=== PATIENT | female | born 1960 | race Caucasian/White ===

== ENCOUNTER 2017-09-13 15:39 | Emergency (ER) | payer MEDICAID ==
[~2017-09-13] VITALS: Ht 149.9 cm; Wt 44.6 kg
[~2017-09-13 15:39] MED LIST: ACET-1757 PO; ALBU6.7H; ALPR1TAB2 PO; BENA1TAB2; CHOL100011 PO; FLUO20CA8 PO; GUAI5SYR PO; HYDR-3237 PO; HYDR-3307 PO; LORA-446 PO; POTA8TAB PO; RANI150T4 PO
[2017-09-13] MEDS ORDERED: ALBUTEROL SULFATE 2.5 MG/3 ML ONE (16:57)
[2017-09-13] MEDS ORDERED: ALBUTEROL SULFATE 2.5MG/0.5ML NPPB SCH (17:00)
[2017-09-13 17:35] LABS: HEMATOCRIT 46.8 % (34.6-47.8); WHITE BLOOD COUNT 15.9 x10^3/uL (3.4-10)
[2017-09-13 17:37] LABS: BLOOD UREA NITROGEN 9 mg/dL (7-18)
[2017-09-13 18:04] LABS: IS PT STATUS REG ER OR PRE ER? YES
[2017-09-13 18:59] VITALS: BP 154/88
== END 2017-09-13 19:01 | disposition home or self-care (01) ==
LOC: ED 16:56
DX: J44.1 Chronic obstructive pulmonary disease with (acute) exacerbation (principal); I25.2 Old myocardial infarction; I10 Essential (primary) hypertension; F17.200 Nicotine dependence, unspecified, uncomplicated; J45.909 Unspecified asthma, uncomplicated; Z90.49 Acquired absence of other specified parts of digestive tract; Z90.710 Acquired absence of both cervix and uterus; Z90.89 Acquired absence of other organs
CPT/HCPCS: 36415; 71010; 80048; 82040; 84484; 85025; 93005; 94640; 99285; J7512

== ENCOUNTER 2018-05-31 12:01 | Emergency (ER) | payer MEDICAID ==
[~2018-05-31] VITALS: Ht 152.4 cm; Wt 45.3 kg
[2018-05-31 12:39] LABS: MICROSCOPIC NOT IND
[2018-05-31 12:44] LABS: CULTURE INDICATED? NO
[2018-05-31] MEDS ORDERED: PANTOPRAZOLE 40 MG IV IVP ONE (13:00)
[2018-05-31] MEDS ORDERED: MAALOX/HYOSCYAMINE/LIDOCAINE 45 ML BTL PO ONE (13:00)
[2018-05-31] MEDS ORDERED: PANTOPRAZOLE 40 MG IV ONE (13:27)
[2018-05-31 13:48] LABS: BASOPHILS # (AUTO) 0.06 x10^3/uL (0-0.1); BASOPHILS % (AUTO) 1 % (0-1); EOSINOPHILS # (AUTO) 0.08 x10^3/uL (0-0.4); EOSINOPHILS % (AUTO) 1 % (1-7); LYMPHOCYTES # (AUTO) 2.31 x10^3/uL (1-3.4); LYMPHOCYTES % (AUTO) 30 % (22-44); MD NO; MEAN CORPUSCULAR HEMOGLOBIN 31.7 pg (27.0-34.8); MEAN CORPUSCULAR HGB CONC 33.6 g/dL (32.4-35.8); MEAN CORPUSCULAR VOLUME 94.2 fL (80-100); MEAN PLATELET VOLUME 8.2 fL (7.4-10.4); MONOCYTES # (AUTO) 0.68 x10^3/uL (0.2-0.8); MONOCYTES % (AUTO) 9 % (2-9); NEUTROPHILS # (AUTO) 4.64 x10^3/uL (1.8-6.8); NEUTROPHILS % (AUTO) 60 % (42-75); PLATELET COUNT 291 x10^3/uL (130-400); RED BLOOD COUNT 4.69 x10^6/uL (3.82-5.3); RED CELL DISTRIBUTION WIDTH 12.6 % (9.6-15.2)
[2018-05-31] MEDS ORDERED: MAALOX/HYOSCYAMINE/LIDOCAINE 45 ML BTL ONE (13:55)
[2018-05-31 13:58] LABS: ALANINE AMINOTRANSFERASE 16 U/L (12-78); ALBUMIN 3.6 g/dL (3.4-5.0); ANION GAP 9 mmol/L (5-15); CALCIUM 8.5 mg/dL (8.5-10.1); CHLORIDE 109 mmol/L (98-107); CREATININE 0.69 mg/dL (0.55-1.02)
[2018-05-31 14:00] LABS: ALKALINE PHOSPHATASE 54 U/L (45-117); BILIRUBIN,TOTAL 0.5 mg/dL (0.2-1.0); TOTAL PROTEIN 6.6 g/dL (6.4-8.2)
[2018-05-31 14:56] VITALS: BP 149/79
[2018-05-31] MEDS ORDERED: OMNIPAQUE 350 MG/ML, 100ML BOTTLE ONE (15:13)
== END 2018-05-31 16:08 | disposition home or self-care (01) ==
LOC: ED 14:27
DX: K26.3 Acute duodenal ulcer without hemorrhage or perforation (principal); R10.0 Acute abdomen; I25.2 Old myocardial infarction; J44.9 Chronic obstructive pulmonary disease, unspecified; I10 Essential (primary) hypertension; F17.200 Nicotine dependence, unspecified, uncomplicated
CPT/HCPCS: 36415; 74177; 80053; 81003; 83690; 85025; 96374; 99285; C9113; Q9967

== ENCOUNTER → 2020-06-18 | Outpatient (CLI) | payer MEDICAID ==
[~2020-06-18] MED LIST changes: -ACET-1757 PO; +ACET-2065 PO; +ALBU1.25 NEB; +ALBU18HF INH; -ALBU6.7H; +ALBU6.7H8; +CEFD300C37 PO; +DOXY100T PO; +FLUO20CA23 PO; -FLUO20CA8 PO; +FLUT1DIS3 INH; +GUAI-103 PO; +HYDR-3246 PO; -HYDR-3307 PO; +IPRA3AMP30 NPPB; +LACT1TAB13 PO; +NICO-487 TD; +PRED20TA PO; +TIOT18CA INH
== END | disposition home or self-care (01) ==
LOC: STAR 12:54
PROVIDERS: ATTEND Internal Medicine Gastroenterology
DX: Z01.818 Encounter for other preprocedural examination (principal); Z11.59 Encounter for screening for other viral diseases; D49.0 Neoplasm of unspecified behavior of digestive system; R94.31 Abnormal electrocardiogram [ECG] [EKG]
CPT/HCPCS: 36415; 87635; 93005

== ENCOUNTER 2020-06-22 09:15 | Day surgery (SDC) | payer MEDICAID ==
[~2020-06-22] VITALS: Ht 149.9 cm; Wt 56.0 kg
[~2020-06-22 09:15] MED LIST changes: +ACETAMINOPHEN 325 MG TABLET PO PRN; +EPHEDRINE 50 MG/ML, 1ML IVPush PRN; +FENTANYL PF 100 MCG/2ML IV PRN; +HYDROmorphone 1 MG/ML, 1ML INJ IVPush PRN; +LABETALOL 5MG/ML, 20ML IV PRN; +MEPERIDINE/PF 25MG/0.5ML IVPush PRN; +ONDANSETRON 2MG/ML, 2ML IVPush PRN; +OXYcodone 5 MG/5 ML ORAL.SOL UDC PO PRN; +PROMETHAZINE 25 MG/ML, 1ML IVPush PRN; +hydrALAzine 20 MG/ML, 1ML IV PRN
[2020-06-22] MEDS ORDERED: LACTATED RINGERS 1,000 ML IV SCH (09:45)
[2020-06-22 09:47] VITALS: BP 128/86
[2020-06-22] MEDS ORDERED: CHLORHEXIDINE 15 ML UDC ONE (09:52)
[2020-06-22] MEDS ORDERED: CHLORHEXIDINE 15 ML UDC MM ONE (10:00)
[2020-06-22] MEDS ORDERED: PROPOFOL 50 ML ONE (10:12)
[2020-06-22] MEDS ORDERED: PROPOFOL 10 MG/ML, 20ML ONE (10:54)
[2020-06-22] MEDS ORDERED: ALBUTEROL HFA 90 MCG/SPRAY ONE (11:10)
== END 2020-06-22 12:50 | disposition home or self-care (01) ==
LOC: OUT 09:15
PROVIDERS: ATTEND Internal Medicine Gastroenterology
DX: K63.89 Other specified diseases of intestine (principal); K57.30 Diverticulosis of large intestine without perforation or abscess without bleeding; J44.9 Chronic obstructive pulmonary disease, unspecified; E78.5 Hyperlipidemia, unspecified; I10 Essential (primary) hypertension; F12.90 Cannabis use, unspecified, uncomplicated; F17.210 Nicotine dependence, cigarettes, uncomplicated; Z88.8 Allergy status to other drugs, medicaments and biological substances; Z88.5 Allergy status to narcotic agent; Z90.710 Acquired absence of both cervix and uterus; Z90.49 Acquired absence of other specified parts of digestive tract; Z98.890 Other specified postprocedural states; Z79.899 Other long term (current) drug therapy; Z72.89 Other problems related to lifestyle; Z82.49 Family history of ischemic heart disease and other diseases of the circulatory system
CPT/HCPCS: 45331; 45341; 88305; J2704; J7120; 36415; 87635